=== PATIENT | female | born 1960 | race Caucasian/White ===

== ENCOUNTER → 2017-03-18 | Day surgery (SDC) | payer BC ==
[2017-03-17 10:49] VITALS: Ht 162.6 cm; Wt 131.8 kg
[~2017-03-18] VITALS: Ht 162.6 cm; Wt 131.8 kg
[~2017-03-18] MED LIST: ASPI325T45 PO; FLUT0.15 NAE; FLX10 PO; GLC/500 PO; KETAMINE HCL INJ 50 MG/ML 10 ML VIAL ONE; LIDOCAINE HCL 2% 2 ML VIAL (20MG/ML) ONE; LISI-787 PO; LORA10CA2 PO; MIDAZOLAM HCL 1 MG/ML 2ML VIAL ONE; PROPOFOL IV EMULSION 10 MG/ML 20 ML VIAL IV ONE; SODIUM CHLORIDE 0.9% 500ML 500 ML IV ONE
[2017-03-18 08:20] VITALS: TEMP 36.5
--- NOTE | 2017-03-18 08:33 | Endo History and Physical ---
History & Physical Date of Service: Mar 18, 2017. Chief Complaint: iron deficiency anemia Referring Physician: Dr. Andrew Llanes History of Present Illness iron def anemia Past Medical History Diabetes, Sleep Apnea, Hypertension Past Surgical History Hx Cardiac Surgery: No Hx Internal Defibrillator: No Hx Pacemaker: No Hx Abdominal Surgery: Yes ( X 3, TUBAL LIGATION) Hx of Implantable Prosthesis: No Hx Post-Op Nausea and Vomiting: Yes Hx Cancer Surgery: No Hx Thoracic Surgery: No Hx Orthopedic: No Hx Urinary Tract Surgery: No Family History None Social History Smoking Status: Never Smoker Hx Substance Use: No Hx Alcohol Use: Yes (RARELY) Allergies Coded Allergies: Amoxicillin (Verified Allergy, Unknown, HIVES, 03/17/17) Sulfa Antibiotics (Verified Allergy, Unknown, HIVES, 03/17/17) High Fructose [place] Syrup (Verified Adverse Reaction, Unknown, JOINT PAIN, 03/17/17) Uncoded Allergies: ARTIFICIAL SWEETNERS (Adverse Reaction, Unknown, JOINT PAIN, 01/27/14) Current Medications Reported Home Medications Medications Dose Route/Sig Max Daily Dose Days Date Category Flonase Allergy Relief (Fluticasone Propionate (Nasal)) 50 Mcg/Act Spr 1 [place] DAILY PRN 03/17/17 Reported Claritin (Loratadine) 10 Mg Cap 10 Mg PO QAM 03/17/17 Reported Aspirin 325 Mg Tab 325 Mg PO DAILY AT LUNCH 03/17/17 Reported Cyclobenzaprine HCl 10 Mg Tab 1 Tab PO BID PRN 03/17/17 Reported Glucophage (Metformin Hcl) 500 Mg Tab 500 Mg PO TID 03/17/17 Reported Zestoretic 20MG/12.5MG (HCTZ/Lisinopril) Tab 1 Tab PO QAM 03/17/17 Reported Vital Signs Weight (Kilograms): 131.82 Height (Feet): 5 Height (Inches): 4 Date Time Temp Pulse Resp B/P (MAP) Pulse Ox O2 Delivery O2 Flow Rate FiO2 03/18/17 08:20 36.5 83 20 133/48 (76) 99 Room Air Physical Exam General Appearance: no apparent distress Respiratory/Chest: Auscultation: breath sounds normal Cardiovascular: Heart Auscultation: RRR Abdomen: Inspection & Palpation: soft Liver: non-tender Assessment and Plan stable for EGD/ [place]
--- NOTE | 2017-03-18 09:13 | Discharge Instructions ---
Endoscopy Patient Instructions Date / Procedure(s) Performed Mar 18, 2017. Colonoscopy, EGD Allergy Information Coded Allergies: Amoxicillin (Verified Allergy, Unknown, HIVES, 03/17/17) Sulfa Antibiotics (Verified Allergy, Unknown, HIVES, 03/17/17) High Fructose [place] Syrup (Verified Adverse Reaction, Unknown, JOINT PAIN, 03/17/17) Uncoded Allergies: ARTIFICIAL SWEETNERS (Adverse Reaction, Unknown, JOINT PAIN, 01/27/14) Discharge Date / Findings Mar 18, 2017. Normal EGD/ [place]. Medication Instructions Stopped Medication(s): last dose Metformin and ASA Thursday Provider Instructions Activity Restrictions - No exercising or heavy lifting for 24 hours. - Do not drink alcohol the day of the procedure. - Do not drive a car or operate machinery until the day after the procedure. - Do not make any important decisions or sign important papers in 24 hours after the procedure. Following Day: - Return to full activity which may include returning to work/school. Diet Start your diet with liquids and light foods (jello, soup, juice, toast). Then eat your usual diet if not nauseated. Treatment For Common After Affects For mild abdominal pain, bloating, or excessive gas: - Rest - Eat lightly - Lie on right side Follow-Up Information Follow-up with Dr. Andrew Llanes as scheduled Anesthesia Information What You Should Know You have had a procedure that required some medicine to reduce anxiety and discomfort. This treatment is called moderate sedation. After receiving the treatment, you may be sleepy, but you will be able to breathe on your own. The effects of the treatment may last for several hours. Follow these instructions along with Activity/Diet recommendations noted above: * Do NOT do anything where dizziness or clumsiness would be dangerous. * Rest quietly at home today, then you can be up and about tomorrow. * Have a responsible person stay with you the rest of today. * You may have had an I.V. today. If so, you may take the dressing off later today. Recommendations Call your doctor if: * Trouble breathing * Continuous vomiting for more than 24 hours * Temperature above 101 degrees * Severe abdominal pain or bloating * Pain not relieved by pain medicine ordered * There is increased drainage or redness from any incision * A large amount of rectal bleeding greater than 2-3 tablespoons. (If you had a polyp/s removed or have hemorrhoids, a small amount of blood - from the rectum is to be expected.) * You have any unanswered questions or concerns. IN THE EVENT OF A SERIOUS EMERGENCY, GO TO THE NEAREST EMERGENCY ROOM Your discharge instructions were prepared by provider Iban Salmeron. Patient Instructions Signature Page Gloria De Jesus Patient (or Guardian) Signature/Date: I have read and understand the instructions given to me by my caregivers. Caregiver/RN/Doctor Signature/Date: The above-named patient and/or guardian has received patient instructions on this date. + Original Patient Signature Page (only) stays with chart. Please make copy for patient.
--- NOTE | 2017-03-18 09:32 | Anesthesiology Progress Note ---
Anesthesia Post Op Note Date & Time Mar 18, 2017 at 09:31 Vital Signs Pain Intensity: 0 Vital Signs Past 12 Hours Date Time Temp Pulse Resp B/P (MAP) Pulse Ox O2 Delivery O2 Flow Rate FiO2 03/18/17 09:16 77 18 156/77 (103) 100 Room Air 03/18/17 08:20 36.5 83 20 133/48 (76) 99 Room Air Notes Mental Status: alert / awake / arousable, participated in evaluation Pt Amnestic to Procedure: Yes Nausea / Vomiting: adequately controlled Pain: adequately controlled Airway Patency, RR, SpO2: stable & adequate BP & HR: stable & adequate Hydration State: stable & adequate Anesthetic Complications: no major complications apparent
--- NOTE | 2017-03-18 09:36 | GI REPORT ---
Procedure Date: 03/18/2017 8:28 AM Procedure: Upper GI endoscopy Indications: Iron deficiency anemia Medicines: See the Anesthesia note for documentation of the administered medications Complications: No immediate complications. Estimated Blood Loss: Estimated blood loss was minimal. Procedure: Pre-Anesthesia Assessment: - Prior to the procedure, a History and Physical was performed, and patient medications, allergies and sensitivities were reviewed. The patient's tolerance of previous anesthesia was reviewed. - The risks and benefits of the procedure and the sedation options and risks were discussed with the patient. All questions were answered and informed consent was obtained. - Patient identification and proposed procedure were verified prior to the procedure by the physician and the nurse. The procedure was verified in the pre-procedure area. - Pre-procedure physical examination revealed no contraindications to sedation. - After reviewing the risks and benefits, the patient was deemed in satisfactory condition to undergo the procedure. After obtaining informed consent, the endoscope was passed under direct vision. Throughout the procedure, the patient's blood pressure, pulse, and oxygen saturations were monitored continuously. The scope was introduced through the mouth, and advanced to the fourth part of the duodenum. Small bowel enteroscopy was deemed necessary due to symptoms concerning for celiac. The upper GI endoscopy was accomplished without difficulty. The patient tolerated the procedure well. Findings: The esophagus was normal. The stomach was normal. The duodenum to the 4th part was normal. Biopsies for histology were taken with a cold forceps for evaluation of celiac disease. Verification of patient identification for the specimen was done by the physician and nurse using the patient's name and medical record number. Estimated blood loss was minimal. The cardia and gastric fundus were normal on retroflexion. Impression: - Normal esophagus. - Normal stomach. - Normal duodenum to the 4th part. Biopsied. Recommendation: - Await pathology results. - Perform a colonoscopy today. Iban Salmeron M.D. Iban Salmeron MD 03/18/2017 9:36:04 AM This report has been signed electronically. Note Initiated On: 03/18/2017 8:28 AM I attest to the content of the Intraoperative Record and orders documented therein, exceptions below
--- NOTE | 2017-03-18 09:38 | GI REPORT ---
Procedure Date: 03/18/2017 8:29 AM Procedure: Colonoscopy Indications: Iron deficiency anemia Medicines: See the Anesthesia note for documentation of the administered medications Complications: No immediate complications. Estimated Blood Loss: Estimated blood loss: none. Procedure: Pre-Anesthesia Assessment: - See the other procedure note for documentation of the pre-procedure assessment. After I obtained informed consent, the scope was passed under direct vision. Throughout the procedure, the patient's blood pressure, pulse, and oxygen saturations were monitored continuously. The scope was introduced through the anus and advanced to the cecum, identified by appendiceal orifice and ileocecal valve. The colonoscopy was performed without difficulty. The patient tolerated the procedure well. The quality of the bowel preparation was good. Findings: The perianal and digital rectal examinations were normal. The entire examined colon appeared normal on direct and retroflexion views. Impression: - The entire examined colon is normal on direct and retroflexion views. - No specimens collected. Recommendation: - Repeat colonoscopy in 10 years for screening purposes. - Discharge patient to home. Iban Salmeron M.D. Iban Salmeron MD 03/18/2017 9:37:27 AM This report has been signed electronically. Note Initiated On: 03/18/2017 8:29 AM I attest to the content of the Intraoperative Record and orders documented therein, exceptions below
[2017-03-18 09:46] VITALS: BP 152/66; PULSE 88; O2SAT 100
== END | disposition home or self-care (01) ==
LOC: C.GI 07:56
PROVIDERS: ATTEND Internal Medicine Gastroenterology
DX: D50.9 Iron deficiency anemia, unspecified (principal); I10 Essential (primary) hypertension; E11.9 Type 2 diabetes mellitus without complications; G47.30 Sleep apnea, unspecified; Z79.899 Other long term (current) drug therapy